=== PATIENT | male | born 1980 | race Caucasian/White ===

== ENCOUNTER 2025-03-18 04:28 | Inpatient (IN) | payer OTHER ==
[~2025-03-18] VITALS: Ht 180.3 cm; Wt 109.0 kg
[2025-03-18] MEDS: LORazepam 2 MG/ML VIAL IM ONE (04:58)
[2025-03-18 06:09] LABS: COVID AG,FIA SOURCE NASAL SWAB
[2025-03-18 06:20] LABS: PLATELET COUNT (AUTO) 274 K/uL (150-450); RED BLOOD CELL COUNT(AUTO) 4.64 MIL/uL (4.50-5.90); RED CELL DISTRIBUTION WIDTH 12.9 % (11.5-14.5); WHITE BLOOD COUNT (AUTO) 13.7 K/uL (4.5-11.0)
[2025-03-18 06:31] LABS: CALCIUM, TOTAL 8.8 mg/dL (8.8-10.5); CREATININE 0.89 mg/dL (0.60-1.30); GLOMERULAR FILTR. RATE CALC > 60 mL/min (>60); GLUCOSE,RANDOM 113 mg/dL (70-110); SODIUM SERUM 140 mmol/L (136-145); UREA NITROGEN, BLOOD 13 mg/dL (7-18)
[2025-03-18 06:43] LABS: SARS-COV2 (COVID) ANTIGEN,FIA Negative (Negative)
[2025-03-18] MEDS: POTASSIUM CHLORIDE 20 MEQ ER TABLET PO ONE (10:08)
[2025-03-18] MEDS ORDERED: ZOLPIDEM TARTRATE 10 MG TABLET PO PRN (10:15)
[2025-03-18 21:47] LABS: APPEARANCE,URINE CLEAR (CLEAR); GLUCOSE, URINE (UA) NEGATIVE (NEGATIVE); LEUKOCYTE ESTERASE ,URINE NEGATIVE (NEGATIVE); NITRATE,URINE NEGATIVE (NEGATIVE); OCCULT BLOOD,URINE NEGATIVE (NEGATIVE); PH,URINE DRUG SCREEN 6.0 (5.0-8.0); SPECIFIC GRAVITIY, URINE 1.016 (1.003-1.030)
[2025-03-18 22:57] LABS: ALCOHOL, URINE DRUG SCREEN NEGATIVE (NEGATIVE); AMPHET/METH SCREEN,URINE NEGATIVE (NEGATIVE); BARBITURATE SCREEN, URINE NEGATIVE (NEGATIVE); CANNABINOID SCREEN,URINE POSITIVE (NEGATIVE); COCAINE SCREEN,URINE NEGATIVE (NEGATIVE); METHADONE SCREEN, URINE NEGATIVE (NEGATIVE)
[2025-03-19 05:34] LABS: CHOL/HDL RATIO 2.7 (4.2-7.3); LDL CHOL (CALC.) 84.0 mg/dL (0-130)
[2025-03-19 13:59] VITALS: O2SAT 96
[2025-03-19 15:50] VITALS: BP 146/106; PULSE 92; RESP 18; TEMP 98.2; O2SAT 100
[2025-03-19 20:00] VITALS: BP 140/96; PULSE 94; RESP 18; TEMP 97.5; O2SAT 100
[2025-03-20 08:00] VITALS: BP 135/80; PULSE 80; RESP 18; TEMP 97.1; O2SAT 99
[2025-03-20] MEDS ORDERED: IBUPROFEN 600 MG TABLET PO PRN (08:30)
[2025-03-20] MEDS ORDERED: LOPERAMIDE HCL 2 MG CAPSULE PO PRN (08:30)
[2025-03-20] MEDS ORDERED: MAG HYDROX/ALUMINUM HYD/SIMETH ES 30 ML SUSPENSION UDCUP PO PRN (08:30)
[2025-03-20] MEDS ORDERED: ALBUTEROL SULFATE HFA 90 MCG/PUFF 8 GM INHALER IH PRN (08:30)
[2025-03-20] MEDS ORDERED: BENZOCAINE/MENTHOL [CEPACOL] LOZENGE PO PRN (08:30)
[2025-03-20] MEDS ORDERED: ACETAMINOPHEN 325 MG TABLET PO PRN (08:30)
[2025-03-20] MEDS ORDERED: MAGNESIUM HYDROXIDE SUSPENSION 30 ML UDCUP PO PRN (08:30)
[2025-03-20] MEDS ORDERED: ONDANSETRON 4 MG TABLET PO PRN (08:30)
[2025-03-20] MEDS ORDERED: PETROLATUM,WHITE 28 GM JELLY TP PRN (08:30)
[2025-03-20] MEDS ORDERED: BACITRACIN 28 GM OINTMENT TP PRN (08:30)
[2025-03-20] MEDS ORDERED: OMEPRAZOLE 20 MG CAPSULE PO PRN (08:30)
[2025-03-20] MEDS ORDERED: DOCUSATE SODIUM 100 MG CAPSULE PO PRN (08:30)
[2025-03-20] MEDS: POTASSIUM CHLORIDE 20 MEQ ER TABLET PO ONE (08:56)
[2025-03-20 22:03] VITALS: BP 142/95; PULSE 98; RESP 17; TEMP 98.2; O2SAT 98
[2025-03-21 17:15] VITALS: BP 148/111; PULSE 106; RESP 17; TEMP 98.6; O2SAT 98
[2025-03-21 21:41] VITALS: BP 125/105; PULSE 105; RESP 18; TEMP 97; O2SAT 98
[2025-03-22 08:52] VITALS: BP 146/113; PULSE 92; RESP 20; TEMP 96.2; O2SAT 99
[2025-03-22] MEDS ORDERED: RISP-32 PO (12:33)
[2025-03-22] MEDS ORDERED: AMLO2.5T96 PO (12:33)
== END 2025-03-22 13:25 | disposition home or self-care (01) | DRG 885 ==
LOC: EMS 05:02 → B3A 03-19 11:34 → UNDOADMIN 03-19 11:34 → EMS 03-19 15:52 → 3EI 03-19 17:19
PROVIDERS: ADMIT Psychiatry & Neurology Psychiatry; ATTEND Psychiatry & Neurology Psychiatry
PROC: GZHZZZZ Group Psychotherapy (ICD-10-PCS; principal; 2025-03-20)
PROC: GZ51ZZZ Individual Psychotherapy, Behavioral (ICD-10-PCS; 2025-03-20)
DX: F25.0 Schizoaffective disorder, bipolar type (principal); F12.10 Cannabis abuse, uncomplicated; Z79.899 Other long term (current) drug therapy; I10 Essential (primary) hypertension; K21.9 Gastro-esophageal reflux disease without esophagitis; E66.9 Obesity, unspecified; F41.9 Anxiety disorder, unspecified; G47.00 Insomnia, unspecified; F17.200 Nicotine dependence, unspecified, uncomplicated; F10.90 Alcohol use, unspecified, uncomplicated; Z68.33 Body mass index [BMI] 33.0-33.9, adult
CPT/HCPCS: 80048; 80061; 80178; 80307; 81003; 83036; 84132; 85025; 99285; G0480